=== PATIENT | female | born 1995 | race Two or more races ===

== ENCOUNTER 2018-06-30 01:10 | Emergency (ER) | payer OTHER ==
[2018-06-30 02:00] LABS: PLATELET COUNT 338 10^3/uL (150-400)
[2018-06-30] MEDS ORDERED: NS 1,000 ML IV ONE ×2 (02:19→04:32)
[2018-06-30] MEDS ORDERED: ONDANSETRON 4 MG/2 ML VIAL IVP ONE (02:19)
[2018-06-30] MEDS ORDERED: FAMOTIDINE 20 MG/NACL 50 ML IV ONE (02:19)
--- NOTE | 2018-06-30 02:22 | EDPHY ---
H & P Stated Complaint: EPIGASTRIC ABD PAIN TODAY, VOMITINIG Time Seen by Provider: 06/30/18 02:00 HPI/ROS: HPI The patient presents with epigastric abdominal pain which began yesterday in the morning and has been intermittent. It is sharp in nature, radiates throughout her upper abdomen, is not related to meals. She has had vomiting when she tries to take anything by mouth including water. She noticed some bloody streaks recently in her vomit. She has not had any diarrhea or fever. She has no prior history of similar illness. She is not taking any new medications.. She has had several alcoholic drinks tonight as well as throughout the weekend. REVIEW OF SYSTEMS 10 systems were reviewed and negative with the exception of the elements mentioned in the history of present illness. PMHx: Healthy Soc Hx: Student at [employer], frequent alcohol use. PHYSICAL General Appearance: Alert, no distress Eyes: Pupils equal and round no pallor or injection ENT, Mouth: Mucous membranes moist Respiratory: There are no retractions, lungs are clear to auscultation Cardiovascular: Regular rate and rhythm Gastrointestinal: Abdomen is soft and under the epigastrium no masses, bowel sounds normal Neurological: A&O, moves all extremities Skin: Warm and dry, no rashes Musculoskeletal: Neck is supple non tender Extremities: symmetrical, full range of motion Psychiatric: Patient is oriented X 3, there is no agitation Source: Patient Exam Limitations: No limitations - Personal History LMP (Females 10-55): 8-14 Days Ago Current Tetanus/Diphtheria Vaccine: Yes Current Tetanus Diphtheria and Acellular Pertussis (TDAP): Yes - Medical/Surgical History Hx Asthma: No Hx Chronic Respiratory Disease: No Hx Diabetes: No Hx Cardiac Disease: No Hx Renal Disease: No Hx Cirrhosis: No Hx Alcoholism: No Hx HIV/AIDS: No Hx Splenectomy or Spleen Trauma: No Other PMH: VIPUL ANGINA - Social History Smoking Status: Never smoked Constitutional: Initial Vital Signs Temperature (C) 37.2 C 06/30/18 01:17 Heart Rate 134 H 06/30/18 01:17 Respiratory Rate 18 06/30/18 01:17 Blood Pressure 162/98 H 06/30/18 01:17 O2 Sat (%) 95 06/30/18 01:17 O2 Delivery Mode Room Air Allergies/Adverse Reactions: No Known Allergies Allergy (Unverified 06/30/18 01:20) Home Medications: Medication Instructions Recorded Ondansetron Odt [Zofran Odt 4 mg 4 mg PO Q4 PRN #10 tab 06/30/18 (*)] Medical Decision Making - Diagnostics Imaging Results: Ultrasound right upper quadrant demonstrates normal gallbladder, hepatomegaly consistent with steatosis, interpreted by direct Radiology. Imaging: I viewed and interpreted images myself Differential Diagnosis: 21-year-old female with epigastric abdominal pain which is intermittent and associated with nausea and vomiting. Here, she is tachycardic, she has mild epigastric tenderness. Differential diagnosis includes gastritis, pancreatitis, biliary colic. Plan for IV fluids, antiemetics, famotidine. Patient feels better after above treatments. Labs reveal transaminitis with ALT greater than AST. Lipase is normal, she does have a leukocytosis of 16, 000. Repeat abdominal exam is benign. She underwent right upper quadrant ultrasound to evaluate for possible cholecystitis. She did not have this though is noted to have fatty liver. I suspect her symptoms could be related to gastritis, triggered by alcohol use. She could also have acute hepatitis. Given her ultrasound findings, I have advised her to cut down on alcohol use. She is able to tolerate fluids by mouth and will be discharged. I have sent a liver panel. - Data Points Laboratory Results: Laboratory Results 06/30/18 01:50 06/30/18 01:50 06/30/18 06/30/18 06/30/18 01:50 01:50 01:50 WBC RBC Hgb Hct MCV MCH MCHC RDW Plt Count MPV Neut % (Auto) Lymph % (Auto) [place] % (Auto) Eos % (Auto) Baso % (Auto) Nucleat RBC Rel Count Absolute Neuts (auto) Absolute Lymphs (auto) Absolute Monos (auto) Absolute Eos (auto) Absolute Basos (auto) Absolute Nucleated RBC Immature Gran % Immature Gran # Sodium 142 mEq/L mEq/L (135-145) Potassium 3.3 mEq/L L mEq/L (3.5-5.2) Chloride 101 mEq/L mEq/L (97-110) Carbon Dioxide 22 mEq/l mEq/l (22-31) Anion Gap 19 mEq/L H mEq/L (6-14) BUN 9 mg/dL mg/dL (7-23) Creatinine 0.8 mg/dL mg/dL (0.6-1.0) Estimated GFR > 60 Glucose 148 mg/dL H mg/dL (70-100) Calcium 9.0 mg/dL mg/dL (8.5-10.4) Total Bilirubin 0.5 mg/dL mg/dL (0.1-1.4) AST 74 IU/L H IU/L (14-46) ALT 138 IU/L H IU/L (9-52) Alkaline Phosphatase 95 IU/L IU/L (38-126) Total Protein 8.0 g/dL g/dL (6.3-8.2) Albumin 4.6 g/dL g/dL (3.5-5.0) Lipase 60 IU/L IU/L (23-300) Hepatitis A IgM Ab NEGATIVE (NEGATIVE) Hep Bs Antigen NEGATIVE (NEGATIVE) Hep B Core IgM Ab NEGATIVE (NEGATIVE) Hepatitis C Antibody NEGATIVE (NEGATIVE) 06/30/18 01:50 WBC 16.61 10^3/uL H 10^3/uL (3.80-9.50) RBC 5.10 10^6/uL 10^6/uL (4.18-5.33) Hgb 15.2 g/dL g/dL (12.6-16.3) Hct 44.9 % % (38.0-47.0) MCV 88.0 fL fL (81.5-99.8) MCH 29.8 pg pg (27.9-34.1) MCHC 33.9 g/dL g/dL (32.4-36.7) RDW 11.8 % % (11.5-15.2) Plt Count 338 10^3/uL 10^3/uL (150-400) MPV 10.5 fL fL (8.7-11.7) Neut % (Auto) 83.9 % H % (39.3-74.2) Lymph % (Auto) 9.7 % L % (15.0-45.0) [place] % (Auto) 5.3 % % (4.5-13.0) Eos % (Auto) 0.3 % L % (0.6-7.6) Baso % (Auto) 0.5 % % (0.3-1.7) Nucleat RBC Rel Count 0.0 % % (0.0-0.2) Absolute Neuts (auto) 13.94 10^3/uL H 10^3/uL (1.70-6.50) Absolute Lymphs (auto) 1.61 10^3/uL 10^3/uL (1.00-3.00) Absolute Monos (auto) 0.88 10^3/uL H 10^3/uL (0.30-0.80) Absolute Eos (auto) 0.05 10^3/uL 10^3/uL (0.03-0.40) Absolute Basos (auto) 0.08 10^3/uL 10^3/uL (0.02-0.10) Absolute Nucleated RBC 0.00 10^3/uL 10^3/uL (0-0.01) Immature Gran % 0.3 % % (0.0-1.1) Immature Gran # 0.05 10^3/uL 10^3/uL (0.00-0.10) Sodium Potassium Chloride Carbon Dioxide Anion Gap BUN Creatinine Estimated GFR Glucose Calcium Total Bilirubin AST ALT Alkaline Phosphatase Total Protein Albumin Lipase Hepatitis A IgM Ab Hep Bs Antigen Hep B Core IgM Ab Hepatitis C Antibody Medications Given: Discontinued Medications Sodium Chloride (Ns) 1,000 mls @ 0 mls/hr IV EDNOW ONE; Wide Open PRN Reason: Protocol Stop: 06/30/18 02:20 Last Admin: 06/30/18 02:29 Dose: 1,000 mls Famotidine/Sodium Chloride (Pepcid 20 Mg (Premix)) 50 mls @ 200 mls/hr IV EDNOW ONE Stop: 06/30/18 02:33 Last Admin: 06/30/18 02:31 Dose: 50 mls Sodium Chloride (Ns) 1,000 mls @ 0 mls/hr IV EDNOW ONE; Wide Open PRN Reason: Protocol Stop: 06/30/18 04:33 Last Admin: 06/30/18 04:45 Dose: 1,000 mls Ondansetron HCl (Zofran) 4 mg IVP EDNOW ONE Stop: 06/30/18 02:20 Last Admin: 06/30/18 02:29 Dose: 4 mg Ondansetron HCl (Zofran Odt 4 Mg Prepack#2) 1 btl TAKEHOME EDNOW ONE Stop: 06/30/18 05:33 Last Admin: 06/30/18 05:39 Dose: 1 btl Departure - Departure Disposition: Home, Routine, Self-Care Clinical Impression: Abdominal pain Qualifiers: Abdominal location: epigastric Qualified Code(s): R10.13 - Epigastric pain Nausea & vomiting Qualifiers: Vomiting type: unspecified Vomiting Intractability: non-intractable Qualified Code(s): R11.2 - Nausea with vomiting, unspecified Condition: Good Instructions: Ondansetron (By mouth), Gastritis (ED), Alcoholic Hepatitis (ED) Additional Instructions: For your pain, I recommend you take famotidine 20 mg twice a day. You can use the Zofran as needed for nausea and vomiting. If your symptoms continue, you should return to the emergency department for further treatment. Otherwise, I would like for you to follow up with [facility] for repeat test severe liver to make sure they are improving. We have sent some testing for hepatitis here. If your test returns positive, we will contact you. Referrals: [facility],. [Clinic] - As per Instructions Prescriptions: Ondansetron Odt [Zofran Odt 4 mg (*)] 4 mg PO Q4 PRN #10 tab PRN Reason: Nausea/Vomiting, Can'T Take Po
[2018-06-30 05:24] VITALS: BP 146/100
[2018-06-30] MEDS ORDERED: ONDANSETRON 4MG PREPACK#2 BTL TAKEHOME ONE (05:32)
[2018-06-30 06:46] LABS: HEPATITIS A ANTIBODY IGM (BCH) NEGATIVE (NEGATIVE); HEPATITIS B CORE AB IGM NEGATIVE (NEGATIVE); HEPATITIS B SURFACE ANTIGEN NEGATIVE (NEGATIVE); HEPATITIS C ANTIBODY TOTAL NEGATIVE (NEGATIVE)
== END 2018-06-30 05:40 | disposition home or self-care (01) ==
DX: R10.13 Epigastric pain (principal); R11.2 Nausea with vomiting, unspecified; E86.9 Volume depletion, unspecified
CPT/HCPCS: 96374; G0472; J2405

== ENCOUNTER 2018-08-20 15:47 | Observation (INO) | payer OTHER ==
[2018-08-20] MEDS ORDERED: DIAZEPAM 10 MG/2 ML SYR ONE (16:15)
[2018-08-20] MEDS ORDERED: ONDANSETRON 4 MG/2 ML VIAL ONE (16:15)
[2018-08-20] MEDS ORDERED: NS 1,000 ML IV ONE ×2 (16:15)
[2018-08-20] MEDS ORDERED: ONDANSETRON 4 MG/2 ML VIAL IVP ONE ×2 (16:15→16:59)
[2018-08-20] MEDS ORDERED: FAMOTIDINE 20 MG/NACL 50 ML IV ONE (16:15)
[2018-08-20] MEDS ORDERED: DIAZEPAM 10 MG/2 ML SYR IVP ONE ×3 (16:16→17:31)
[2018-08-20] MEDS ORDERED: PROMETHAZINE HCL 25 MG/ML INJ IVP ONE (16:59)
--- NOTE | 2018-08-20 17:30 | EDPHY ---
H & P Time Seen by Provider: 08/20/18 16:10 HPI/ROS: HPI Alcohol withdrawal, vomiting. 23-year-old female by private vehicle with her mother. This patient has a long history of alcohol abuse. She drinks hard liquor in large amounts daily. Her last drink was at 7:00 p.m. Last night. At approximately 2:00 p.m. This afternoon after graduation from the [employer] this morning she developed nausea followed by intractable vomiting. She also started feeling very anxious and having tremors. Her mother is looking to place her in a detox center next week. She denies any other ingestion other than alcohol. ROS: Constitutional: No fever, no chills. As above. Eyes: No discharge. No changes in vision. ENT: No sore throat. No nasal congestion or rhinorrhea. Respiratory: No cough. No shortness of breath. Cardiac: No chest pain, no palpitations. Gastrointestinal: As above, no diarrhea. Genitourinary: No hematuria. No dysuria or increased frequency with urination. Musculoskeletal: No back pain. No neck pain. No myalgias or arthralgias. Skin: No rashes. Neurological: No headache. No focal weakness or altered sensation. Past medical history: Alcohol withdrawal. Alexys angina. Social history: Student [employer]. Currently here with her mother. Nonsmoker. As above. Physical Exam: General Appearance: Alert, tremulous, dry heaving. This patient is responding to questions appropriately and in full sentences. This patient appears well- hydrated and well-nourished. Eyes: Pupils equal and round no pallor or injection. No lid edema, erythema or injection. Respiratory: There are no retractions, lungs are clear to auscultation with good air movement bilaterally. Cardiovascular: Regular rate and rhythm. No murmur. Gastrointestinal: Obese habitus. Abdomen is soft with mild and vague tenderness on palpation throughout, no masses, bowel sounds normal. No focal tenderness at McBurney's point. No Ruggiero sign. Neurological: Motor sensory function is grossly intact. Cranial nerves are normal. Gait is normal. Tremulous as noted. Skin: Warm and dry, no rashes. Musculoskeletal: Neck is supple and nontender. Extremities are symmetrical. All joints range without pain or impingement. Psychiatric: No agitation. No depression. Database: EKG: EKG time is 4:10 p.m.; EKG shows a narrow complex sinus tachycardia with a ventricular rate of 107. Borderline Q-waves in the inferior leads. The [place], QRS , QT intervals are within normal limits. There are no ST-T wave changes indicative of ischemic or injury pattern. No evidence of right heart strain. Interpreted by me. Imaging: Procedures: Emergency department course: Triage vital signs reviewed. She is afebrile. She is tachycardic near 150 and moderately hypertensive. IV was established. She was started on IV normal saline with 1-2 L to be given over the next 1-2 hours. She was initially given 20 mg of IV Pepcid, 4 mg of IV Zofran and 10 mg of IV Valium. 4:15 p.m., her tachycardia has resolved. Heart rate is currently 95. Blood pressure is 124/88. She is feeling better. 5:10 p.m., the patient was re-evaluated, she is becoming more tachycardic currently at 1:07 a.m., blood pressure is also increased to 151/112. She will be given another 10 mg of IV Valium. She is also complaining of nausea she will be given 6.25 mg of IV Phenergan and 4 mg of IV Zofran. Valium will be repeated aggressively as needed. 5:20 p.m., spoke with the on-call hospitalist, Dr. Gustavo Tomlinson regarding this patient. Plan was to possibly admit the patient to the hospitalist service for treatment overnight and discharged in the morning so she could enjoy graduation festivities with family who are in town. However, the patient was notified that chances were relatively high that she would not be discharged tomorrow may require a couple days in the hospital. Both her and her mother would now like to continue emergency department treatment and see if she can be discharged home this evening. 6:35 p.m., the patient was re-evaluated, she failed a p.o. Challenge and vomited. She remains hypertensive. She is not as tremulous after above medications. Borderline tachycardia at around 100. I discussed admission with her and her mother. They both endorse. Hospitalist paged. 6:40 p.m., spoke with on-call hospitalist Dr. Gustavo Tomlinson. I have discussed this case with her previously is noted. She accepts this patient for admission to the hospitalist service for treatment of vomiting and alcohol withdrawal. The patient's remaining emergency department course under my care has been uneventful. The patient was admitted in stable condition to the hospitalist service. Differential Diagnosis: The differential diagnosis on this patient includes but is not limited to alcohol withdrawal, alcohol gastritis with vomiting. Bowel obstruction, pancreatitis, cholecystitis, appendicitis unlikely. This represents a partial list of diagnoses considered. These considerations are based on history, physical exam, past history, reassessment and diagnostic testing. Smoking Status: Never smoked Constitutional: Initial Vital Signs Temperature (C) 36.6 C 08/20/18 15:54 Heart Rate 149 H 08/20/18 15:54 Respiratory Rate 28 H 08/20/18 15:54 Blood Pressure 156/124 H 08/20/18 15:54 O2 Sat (%) 97 08/20/18 15:54 O2 Delivery Mode Room Air Allergies/Adverse Reactions: No Known Allergies Allergy (Unverified 06/30/18 01:20) Home Medications: Medication Instructions Recorded Escitalopram Oxalate [Lexapro] 10 mg PO DAILY@12 08/20/18 Medical Decision Making - Data Points Laboratory Results: Laboratory Results 08/20/18 17:30 08/20/18 16:05 08/20/18 08/20/18 08/20/18 17:30 17:30 16:05 WBC 17.67 10^3/uL H 10^3/uL (3.80-9.50) RBC 5.00 10^6/uL 10^6/uL (4.18-5.33) Hgb 14.9 g/dL g/dL (12.6-16.3) Hct 43.9 % % (38.0-47.0) MCV 87.8 fL fL (81.5-99.8) MCH 29.8 pg pg (27.9-34.1) MCHC 33.9 g/dL g/dL (32.4-36.7) RDW 11.9 % % (11.5-15.2) Plt Count 409 10^3/uL H 10^3/uL (150-400) MPV 11.0 fL fL (8.7-11.7) Neut % (Auto) 80.6 % H % (39.3-74.2) Lymph % (Auto) 15.0 % % (15.0-45.0) [place] % (Auto) 3.7 % L % (4.5-13.0) Eos % (Auto) 0.0 % L % (0.6-7.6) Baso % (Auto) 0.4 % % (0.3-1.7) Nucleat RBC Rel Count 0.0 % % (0.0-0.2) Absolute Neuts (auto) 14.23 10^3/uL H 10^3/uL (1.70-6.50) Absolute Lymphs (auto) 2.65 10^3/uL 10^3/uL (1.00-3.00) Absolute Monos (auto) 0.66 10^3/uL 10^3/uL (0.30-0.80) Absolute Eos (auto) 0.00 10^3/uL L 10^3/uL (0.03-0.40) Absolute Basos (auto) 0.07 10^3/uL 10^3/uL (0.02-0.10) Absolute Nucleated RBC 0.00 10^3/uL 10^3/uL (0-0.01) Immature Gran % 0.3 % % (0.0-1.1) Immature Gran # 0.06 10^3/uL 10^3/uL (0.00-0.10) Sodium Potassium Chloride Carbon Dioxide Anion Gap BUN Creatinine Estimated GFR Glucose Calcium Total Bilirubin 0.7 mg/dL mg/dL (0.1-1.4) Conjugated Bilirubin 0.4 mg/dL mg/dL (0.0-0.5) Unconjugated Bilirubin 0.3 mg/dL mg/dL (0.0-1.1) AST 71 IU/L H IU/L (14-46) ALT 115 IU/L H IU/L (9-52) Alkaline Phosphatase 103 IU/L IU/L (38-126) Total Protein 8.6 g/dL H g/dL (6.3-8.2) Albumin 5.2 g/dL H g/dL (3.5-5.0) Lipase 67 IU/L IU/L (23-300) Beta HCG, Qual NEGATIVE 08/20/18 16:05 WBC RBC Hgb Hct MCV MCH MCHC RDW Plt Count MPV Neut % (Auto) Lymph % (Auto) [place] % (Auto) Eos % (Auto) Baso % (Auto) Nucleat RBC Rel Count Absolute Neuts (auto) Absolute Lymphs (auto) Absolute Monos (auto) Absolute Eos (auto) Absolute Basos (auto) Absolute Nucleated RBC Immature Gran % Immature Gran # Sodium 139 mEq/L mEq/L (135-145) Potassium 3.4 mEq/L L mEq/L (3.5-5.2) Chloride 101 mEq/L mEq/L (97-110) Carbon Dioxide 16 mEq/l L mEq/l (22-31) Anion Gap 22 mEq/L H mEq/L (6-14) BUN 11 mg/dL mg/dL (7-23) Creatinine 0.8 mg/dL mg/dL (0.6-1.0) Estimated GFR > 60 Glucose 145 mg/dL H mg/dL (70-100) Calcium 9.9 mg/dL mg/dL (8.5-10.4) Total Bilirubin Conjugated Bilirubin Unconjugated Bilirubin AST ALT Alkaline Phosphatase Total Protein Albumin Lipase Beta HCG, Qual Medications Given: Discontinued Medications Diazepam (Valium) 10 mg IVP EDNOW ONE Stop: 08/20/18 16:17 Last Admin: 08/20/18 16:20 Dose: 10 mg Diazepam (Valium) 5 mg IVP EDNOW ONE Stop: 08/20/18 17:09 Last Admin: 08/20/18 17:51 Dose: 5 mg Sodium Chloride (Ns) 1,000 mls @ 0 mls/hr IV EDNOW ONE; Wide Open PRN Reason: Protocol Stop: 08/20/18 16:16 Last Admin: 08/20/18 16:20 Dose: 1,000 mls Sodium Chloride (Ns) 1,000 mls @ 0 mls/hr IV EDNOW ONE; Wide Open PRN Reason: Protocol Stop: 08/20/18 16:16 Last Admin: 08/20/18 16:20 Dose: 1,000 mls Famotidine/Sodium Chloride (Pepcid 20 Mg (Premix)) 50 mls @ 200 mls/hr IV EDNOW ONE Stop: 08/20/18 16:29 Last Admin: 08/20/18 16:41 Dose: 50 mls Ondansetron HCl (Zofran) 4 mg IVP EDNOW ONE Stop: 08/20/18 16:16 Last Admin: 08/20/18 16:18 Dose: 4 mg Ondansetron HCl (Zofran) 4 mg IVP EDNOW ONE Stop: 08/20/18 17:00 Last Admin: 08/20/18 17:20 Dose: 4 mg Promethazine HCl (Phenergan) 6.25 mg IVP EDNOW ONE Stop: 08/20/18 17:00 Last Admin: 08/20/18 17:19 Dose: 6.25 mg Departure - Departure Disposition: [facility] Acute Clinical Impression: Alcoholic gastritis, Vomiting, Alcohol withdrawal Referrals: [facility] [Other] - As per Instructions
[2018-08-20 17:46] LABS: PLATELET COUNT 409 10^3/uL (150-400)
[2018-08-20] MEDS ORDERED: LORazepam 2 MG/ML INJ IVP ONE (18:51)
[2018-08-20] MEDS ORDERED: HYDROmorphONE/DILAUDID 1 MG/ML INJ IVP PRN (18:52)
[2018-08-20] MEDS ORDERED: LORazepam 2 MG/ML INJ IVP PRN (18:52)
[2018-08-20] MEDS ORDERED: ONDANSETRON DISINTEGRATING 4 MG TAB PO PRN (18:52)
[2018-08-20] MEDS ORDERED: ACETAMINOPHEN 325 MG TAB PO PRN (18:52)
[2018-08-20] MEDS ORDERED: PROMETHAZINE HCL 25 MG/ML INJ IVP PRN (18:52)
[2018-08-20] MEDS ORDERED: oxyCODONE IR 5 MG TAB PO PRN (18:52)
[2018-08-20] MEDS ORDERED: ONDANSETRON 4 MG/2 ML VIAL IVP PRN (18:52)
[2018-08-20] MEDS ORDERED: FLUMAZENIL 0.5 MG/5 ML MDV IVP PRN (18:52)
[2018-08-20] MEDS ORDERED: MAG HYDROX/AL HYDROX/SIMETH 30 ML UDCUP PO PRN (18:52)
--- NOTE | 2018-08-20 19:00 | PDGENHP ---
History and Physical - Chief Complaint alcohol withdrawal - History of Present Illness 23 yo F with PMH of alcohol abuse presenting with alcohol withdrawal as well significant n/v all day today. She notes that she has had an issue with drinking all through college, graduated actually from today. Since May she has been drinking very heavily, up to 1/2 gallon per day. She states she has had only mild withdrawal in the past, but rarely would go for more than a day without alcohol. Last week she went to stay at her mothers and was trying to quit and did not drink for 2 days, she had some minor tremulousness but otherwise did ok. She had her last drink yesterday evening around 7pm, and was feeling ok until this afternoon when she developed significant n/v and hot and cold flashes and tremulousness. She has not been able to hold anything down today. She is walking independently but feels off balance. She has mid epigastric pain since retching all day today. She has never had similar sxs in the past. History Information - Allergies/Home Medication List Allergies/Adverse Reactions: No Known Allergies Allergy (Unverified 06/30/18 01:20) Home Medications: Escitalopram Oxalate [Lexapro] 10 mg PO DAILY@12 08/20/18 [Last Taken 08/19/18] I have personally reviewed and updated: family history, medical history, social history, surgical history - Past Medical History Additional medical history: alcohol abuse. depression - Surgical History Reports: no pertinent surgical hx - Family History Additional family history: maternal grandfather with alcoholism. mother with lupus and clotting disorder - Social History Smoking Status: Never smoked Alcohol Use: Heavy Drug Use: None Additional social history: just graduated college today Review of Systems Review of Systems: ROS: 10pt was reviewed & negative except for what was stated in HPI & below Physical Exam Physical Exam: Temp Pulse Resp BP Pulse Ox 36.6 C 102 H 18 150/101 H 98 08/20/18 15:54 08/20/18 17:25 08/20/18 17:25 08/20/18 17:25 08/20/18 17:25 Constitutional: appears nourished, uncomfortable Eyes: PERRL, anicteric sclera Ears, Nose, Mouth, Throat: hearing normal, dry mucous membranes Cardiovascular: regular rate and rhythym, tachycardia Respiratory: no respiratory distress, no rales or rhonchi Gastrointestinal: normoactive bowel sounds, tenderness (mid epigastric), No guarding, No rebound, No distension Genitourinary: no bladder tenderness Skin: warm, normal color Musculoskeletal: full muscle strength Neurologic: AAOx3 Psychiatric: interacting appropriately, not anxious Lab Data & Imaging Review 08/20/18 17:30 08/20/18 16:05 WBC 17.67 10^3/uL (3.80-9.50) H 08/20/18 17:30 RBC 5.00 10^6/uL (4.18-5.33) 08/20/18 17:30 Hgb 14.9 g/dL (12.6-16.3) 08/20/18 17:30 Hct 43.9 % (38.0-47.0) 08/20/18 17:30 MCV 87.8 fL (81.5-99.8) 08/20/18 17:30 MCH 29.8 pg (27.9-34.1) 08/20/18 17:30 MCHC 33.9 g/dL (32.4-36.7) 08/20/18 17:30 RDW 11.9 % (11.5-15.2) 08/20/18 17:30 Plt Count 409 10^3/uL (150-400) H 08/20/18 17:30 MPV 11.0 fL (8.7-11.7) 08/20/18 17:30 Neut % (Auto) 80.6 % (39.3-74.2) H 08/20/18 17:30 Lymph % (Auto) 15.0 % (15.0-45.0) 08/20/18 17:30 [place] % (Auto) 3.7 % (4.5-13.0) L 08/20/18 17:30 Eos % (Auto) 0.0 % (0.6-7.6) L 08/20/18 17:30 Baso % (Auto) 0.4 % (0.3-1.7) 08/20/18 17:30 Nucleat RBC Rel Count 0.0 % (0.0-0.2) 08/20/18 17:30 Absolute Neuts (auto) 14.23 10^3/uL (1.70-6.50) H 08/20/18 17:30 Absolute Lymphs (auto) 2.65 10^3/uL (1.00-3.00) 08/20/18 17:30 Absolute Monos (auto) 0.66 10^3/uL (0.30-0.80) 08/20/18 17:30 Absolute Eos (auto) 0.00 10^3/uL (0.03-0.40) L 08/20/18 17:30 Absolute Basos (auto) 0.07 10^3/uL (0.02-0.10) 08/20/18 17:30 Absolute Nucleated RBC 0.00 10^3/uL (0-0.01) 08/20/18 17:30 Immature Gran % 0.3 % (0.0-1.1) 08/20/18 17:30 Immature Gran # 0.06 10^3/uL (0.00-0.10) 08/20/18 17:30 Sodium 139 mEq/L (135-145) 08/20/18 16:05 Potassium 3.4 mEq/L (3.5-5.2) L 08/20/18 16:05 Chloride 101 mEq/L (97-110) 08/20/18 16:05 Carbon Dioxide 16 mEq/l (22-31) L 08/20/18 16:05 Anion Gap 22 mEq/L (6-14) H 08/20/18 16:05 BUN 11 mg/dL (7-23) 08/20/18 16:05 Creatinine 0.8 mg/dL (0.6-1.0) 08/20/18 16:05 Estimated GFR > 60 08/20/18 16:05 Glucose 145 mg/dL (70-100) H 08/20/18 16:05 Calcium 9.9 mg/dL (8.5-10.4) 08/20/18 16:05 Total Bilirubin 0.7 mg/dL (0.1-1.4) 08/20/18 17:30 Conjugated Bilirubin 0.4 mg/dL (0.0-0.5) 08/20/18 17:30 Unconjugated Bilirubin 0.3 mg/dL (0.0-1.1) 08/20/18 17:30 AST 71 IU/L (14-46) H 08/20/18 17:30 ALT 115 IU/L (9-52) H 08/20/18 17:30 Alkaline Phosphatase 103 IU/L (38-126) 08/20/18 17:30 Total Protein 8.6 g/dL (6.3-8.2) H 08/20/18 17:30 Albumin 5.2 g/dL (3.5-5.0) H 08/20/18 17:30 Lipase 67 IU/L (23-300) 08/20/18 17:30 Beta HCG, Qual NEGATIVE 08/20/18 16:05 Visualized and Interpreted EKG results: Yes EKG additional interpertation: sinus tachycardia, multiple VPCs Assessment & Plan Assessment: Alcoholic gastritis (Acute) Vomiting (Acute) Alcohol withdrawal (Acute) 23 yo F with hx of etoh abuse presenting with alcohol withdraw\al, n/v # etoh use disorder, severe, with alcohol withdrawal: patient mentating well and able to ambulate but tremulous, anxious and with alternating episodes of flushing/chills. Given diazepam in ER with only minimal benefit. Will transition to ativan by CIWA protocol and monitor overnight. She is very motivated to quit drinking and plans to enter treatment next week at [facility]. She is hopeful to dc in am given that her family is in town for her graduation but understands it may not be possible. CIWA, mvi/thiamine/ folate. If sxs improved dc in am with short librium taper and plan for IP treatment next week. # n/v: in the setting of withdrawal and presumably due to same, continue zofran/ phenergan and ativan as well as zantac and PPI, currently clear liquid diet only but will advance as tolerated # alcoholic hepatitis: mild increase in transaminases in setting of above, will trend # abdominal pain, mid-epigastric: following prolonged vomiting as above, ppi/ zantac ordered, abdominal exam benign and not particularly tender to palpation, if not improving as expected overnight or if worsens, low threshold for imaging # depression: continue lexapro # observation status Patient new to my care. Old records reviewed and summarized as above. care plan reviewed with ER doctor, further hx obtained from patients mother present at bedside.
[2018-08-20] MEDS: PANTOPRAZOLE SODIUM 40 MG VIAL IVP SCH (20:08)
[2018-08-20] MEDS: NS 1,000 ML IV SCH (20:13)
--- NOTE | 2018-08-20 20:58 | CPEKG ---
Test Reason : OPEN Blood Pressure : / mmHG Vent. Rate : 107 BPM Atrial Rate : 108 BPM P-R Int : 131 ms QRS Dur : 081 ms QT Int : 370 ms P-R-T Axes : 035 041 018 degrees QTc Int : 494 ms Sinus tachycardia Multiple ventricular premature complexes Borderline Q waves in inferior leads Borderline prolonged QT interval Confirmed by Michelle Hubbard ([id number] on 08/20/2018 8:57:34 PM Referred By: Michelle Hubbard Confirmed By:Michelle Hubbard
[2018-08-20] MEDS ORDERED: PROTOCOL POTASSIUM 1 DOSE MISC PRN (22:01)
[2018-08-20] MEDS ORDERED: PROTOCOL MAGNESIUM 1 DOSE IV PRN (22:01)
[2018-08-20] MEDS: THIAMINE HCL 500 MG in NS 100 ML IV SCH (22:53)
[2018-08-21 05:18] LABS: PLATELET COUNT 274 10^3/uL (150-400)
[2018-08-21] MEDS: NS 1,000 ML IV SCH (05:36)
[2018-08-21] MEDS ORDERED: MULTIVITAMINS 1 EACH TAB PO SCH (09:00)
[2018-08-21] MEDS ORDERED: FOLIC ACID 1 MG TAB PO SCH (09:00)
[2018-08-21] MEDS ORDERED: FAMOTIDINE 20 MG TAB PO SCH (09:00)
[2018-08-21] MEDS: PANTOPRAZOLE SODIUM 40 MG VIAL IVP SCH (09:30)
[2018-08-21] MEDS: THIAMINE HCL 500 MG in NS 100 ML IV SCH (09:30)
[2018-08-21] MEDS ORDERED: ESCITALOPRAM OXALATE 10 MG TAB PO SCH (12:00)
[2018-08-21] MEDS ORDERED: POTASSIUM CL 10 MEQ TAB PO ONE (12:42)
[2018-08-21] MEDS ORDERED: MAGNESIUM SULF 1 GM/DEXTROSE 100 ML IV ONE (12:44)
--- NOTE | 2018-08-21 12:53 | GDS ---
[f rep st] DISCHARGE SUMMARY DISCHARGE DIAGNOSES: 1. Alcohol dependence. 2. Alcohol withdrawal. 3. Nausea, vomiting. 4. Depression/anxiety. 5. Abdominal pain. HISTORY OF PRESENT ILLNESS: A 23-year-old female with alcohol dependence who has been drinking heavi ly since May, up to half a gallon per day. She has had mild withdrawal in the past. Last week she went to stay with her mom and was trying to quit and did not drink for 2 days and then developed tremors. Last drink was day before admission and was feeling okay until the afternoon of [facility] when she developed significant nausea, vomiting, hot and cold flashes and tremors. She complained of epigastric pain after retching. No hematemesis. HOSPITAL COURSE BY PROBLEM: 1. Alcohol withdrawal: Received small doses of Ativan. We will provide a few days of Librium. Mom plans to enroll her in treatment at [facility]. 2. Nausea and vomiting: In the setting of withdrawal. She is tolerating p.o. 3. Alcoholic hepatitis: Mild increase in transaminitis due to alcohol. 4. Abdominal pain: Likely from retching. 5. Depression/anxiety: Lexapro. DISPOSITION: Patient is stable to discharge home. FOLLOWUP: 1. [facility]. 2. Refrain from alcohol. 3. Follow up with primary care physician. PHYSICAL EXAMINATION: VITAL SIGNS: Today, temperature 36.9, blood pressure is 159/60, heart rate in the 80s, respirations 18, 93% on room air. GENERAL: She is overweight. No acute distress. HEENT: PERRLA. Moist mucous membranes. CV: Regular rate and rhythm. LUNGS: Clear. ABDOMEN: Soft, no ntender. : No Barger. MUSCULOSKELETAL: She is moving all 4 extremities. NEURO: 2 through 12 in tact. Minimal hand tremor. Minimal tongue fasciculations. PSYCH: Alert and oriented x3. Time spent on discharge greater than 30 minutes coordinating discharge plan and counseling patient on alcohol cessation. /[id number]/MODL
[2018-08-21 13:01] VITALS: BP 157/119
[2018-08-21] MEDS ORDERED: LORazepam 0.5 MG TAB PO ONE (13:18)
--- NOTE | 2018-08-21 15:03 | ASDISCHSUM ---
Discharge Information Plan Status:Home with No Needs Medically Cleared to Leave: Discharge Date: CM D/C Disposition:Home, Routine, Self-Care ADT D/C Disposition:Home, Routine, Self-Care Projected Discharge Date: Transportation at D/C: Discharge Delay Reason: Follow-Up Date: Discharge Slot: Final Diagnosis: Placement Information Patient Contact Information Contact Name:RAINER FULLER Relationship:Mother Address:[address] [place] [address] City:[place] Phone: State/Zip Code:[place] [address] Email: Financial Information Financial Class:HMO and PPO Plans Primary Plan Desc:KRYSTYNA Primary Plan Number:[id number] Secondary Plan Desc: Secondary Plan Number: Assessment Information LACE LACE Length of stay for Answers: Less than 1 day current admission # of Emergency department Answers: 1-2 visits in the last 6 months Social determinants Answers: History of substance abuse (ETOH, street drugs, prescription drugs, etc.) Mental health diagnosis (anxiety, depression, pers onality disorders, etc.) Score: 7 Date Signed: 08/21/2018 03:01 PM Electronically Signed By:Yeny Khan Intervention Information
[2018-08-23] MEDS ORDERED: THIAMINE HCL 100 MG TAB PO SCH (09:00)
== END 2018-08-21 17:09 | disposition home or self-care (01) ==
LOC: F1N 19:50
PROVIDERS: ADMIT Internal Medicine; ATTEND Internal Medicine
DX: F10.220 Alcohol dependence with intoxication, uncomplicated (principal); F10.239 Alcohol dependence with withdrawal, unspecified; F10.24 Alcohol dependence with alcohol-induced mood disorder; F32.9 Major depressive disorder, single episode, unspecified; F41.9 Anxiety disorder, unspecified; Y90.9 Presence of alcohol in blood, level not specified; E86.9 Volume depletion, unspecified
CPT/HCPCS: 93005; 96361; 96374; 96375; 96376; 99285; G0378; J2060; J2405; J2550; J3360; J3411; J3475